=== PATIENT | female | born 1970 | race Two or more races ===

== ENCOUNTER 2023-08-25 22:55 | Emergency (ER) | payer MEDICAID ==
[~2023-08-25] VITALS: Ht 175.3 cm; Wt 97.6 kg
[2023-08-25 23:20] VITALS: BP 132/67; PULSE 72; RESP 16; O2SAT 97
[2023-08-26] MEDS ORDERED: IBUP-1456 PO (01:17)
[2023-08-26] MEDS: KETOROLAC TROMETH 60MG/2ML VIAL IM ONE (01:25)
== END 2023-08-26 01:32 | disposition home or self-care (01) ==
LOC: ER 22:55
DX: G43.909 Migraine, unspecified, not intractable, without status migrainosus (principal); E11.9 Type 2 diabetes mellitus without complications
CPT/HCPCS: 96372; 99283; J1885